=== PATIENT | female | born 1990 | race Caucasian/White ===

== ENCOUNTER 2017-09-13 22:08 | Emergency (ER) | payer SELFPAY ==
--- NOTE | 2017-09-13 22:28 | ED Physician Documentation ---
General Adult - HISTORIAN Historian: patient, paramedics - HPI Stated Complaint: Hallucinations Chief Complaint: General Adult Further Comments: yes (27 patient brought in by EMS for evaluation. Mother called PD and reported patient was having hallucinations. Patient states PD gave her the choice of correction or come to ER for evaluation. Patient reports she stopped taking her suboxone 7 days ago. Patient states she goes to [facility] in [place]. State her doctor does not know she stopped her suboxone. Patient denies suicidal thoughts, denies suicidal plan, denies homicidal thoughts or plans. States she does smoke marijuana.) - ROS CONST: recent illness (Drug Rehab) EYES/ENT: none CVS/RESP: none GI/: none MS/SKIN/LYMPH: none NEURO/PSYCH: headache, anxiety, depression. denies: fainting, dizziness, tingling, numbness, difficulty walking, difficulty with speech, other - PAST HX Past History: other (Depression; Polypharmacy abuse - including methamphetamine and heroin.) Allergies/Adverse Reactions: Allergies Allergy/AdvReac Type Severity Reaction Status Date / Time No Known Allergies Allergy Verified 09/13/17 22:20 Home Medications: Ambulatory Orders Medication Instructions Recorded Fluoxetine HCl [Prozac] 40 mg PO BID 09/13/17 Ciprofloxacin HCl [Cipro] 500 mg PO BID #14 tablet 09/14/17 - SOCIAL HX Smoking History: cigarettes Drug Use: heroin (History of abuse), marijuana (History of abuse), methamphetamines (History of abuse) - FAMILY HX Family History: No - VITAL SIGNS Vital Signs: Vital Signs Temp Pulse Resp BP Pulse Ox 94 H 18 118/70 97 09/13/17 22:10 09/13/17 22:10 09/13/17 22:10 09/13/17 22:10 - REVIEWED ASSESSMENTS Nursing Assessment Reviewed: Yes Vitals Reviewed: Yes Progress - Progress Progress: Mom and step-father in waiting room. Reviewed event of tonight. Mom reports patient with flight of ideas today, having hallucinations for the past 48 hours , reports patient thought [employer] was coming to get her sister, talking to her grandmother who had . States patient has not been going to out patient therapy, family does not attempt Al-Anon meetings, patient does not attend NA meetings. Mom aware of THC use. During interview, RN came to waiting room, requested provider return to ER. Patient standing at Er nurses desk, yelling "I can hear him talking about a graduate rn, I am not going back to [facility]". "I could hear everything they said". Explained to patient that she could not hear conversation in the waiting room, explained there was not discussion of bevel operator, explained what Mom reported. Patient yelling and walking around in Er, attempted to leave. Assisted patient back to room. Will progress with lab to rule out medical cause of auditory hallucinations. Patient cooperative with lab and IV fluids. Patient resting quietly in room. 0030 Reviewed discharge instructions with patient. NA meeting list provided. Instructed patient to stop using THC. See her PCP as soon as possible. Instructed patient to call [facility] in the morning. UA - with UTI, cipro sent to [facility]. Verbalized understanding. ED Results Lab/Radiology - Orders Orders: ED Orders Category Date Time Status ALCOHOL MEDICAL USE ONLY Stat Lab 09/13/17 Ordered CBC/PLATELET/DIFF Stat Lab 09/13/17 22:14 Ordered CMP Stat Lab 09/13/17 22:14 Ordered UA W/MICRO IF INDICATED Stat Lab 09/13/17 22:15 Ordered Urine drug screen [DRUG SCREEN URINE MEDICAL ONLY] Stat Lab 09/13/17 22:14 Ordered General Adult Physical Exam - PHYSICAL EXAM GENERAL APPEARANCE: moderate distress RESPIRATORY: no resp distress, chest non-tender, breath sounds normal CVS: reg rate & rhythm, heart sounds normal, equal pulses, no murmur, no gallop , PMI nml, no JVD, no friction rub, 24 ABDOMEN: soft, no organomegaly, normal bowel sounds, no abdominal bruit, no distension EXTREMITIES: non-tender, normal range of motion, no evidence of injury, no edema , J, FIELD EXAMINER NEURO: oriented X3, CN's nml as tested, motor nml, sensation nml, mood/affect nml, other (flight of ideas; auditory hallucinations) Discharge Clincal Impression: Auditory hallucination, Marijuana abuse, History of heroin abuse, History of methamphetamine abuse, Non compliance w medication regimen Prescriptions: Ciprofloxacin HCl [Cipro] 500 mg PO BID #14 tablet Referrals: Sherron Moreno FNP [Primary Care Provider] - 2 Days Additional Instructions: Stop using marijuana - it is exacerbating your symptoms. Return to [facility] on Sunday See your provider who prescribes your suboxone as soon as possible. Go to an NA meeting on Sunday. Return to Er if you have thoughts of suicide, homicide or your symptoms become worse. Condition: Stable Disposition: 01 HOME, SELF-CARE Decision to Admit: NO Decision Time: 12:50
[2017-09-13] MEDS ORDERED: 0.9 % SODIUM CHLORIDE 1,000 ML IV ONE ×2 (22:53→22:57)
[2017-09-13 23:55] LABS: BASOPHILS % 0.5 (0.0-1.5); EOSINOPHILS % 0.4 % (0.0-6.8); MEAN CORPUSCULAR HEMOGLOBIN 30.5 pg (28.0-34.0); MEAN CORPUSCULAR VOLUME 90.2 fl (80.0-100.0); MONOCYTES % 4.3 % (0.0-11.0); NEUTROPHILS # 6.8 # k/uL (1.4-7.7)
[2017-09-13 23:58] LABS: eGFR (African) > 60; eGFR (Non-African) > 60
[2017-09-14 00:31] LABS: APPEARANCE,URINE CLOUDY (CLEAR); COLOR,URINE AMBER (YELLOW); OCCULT BLOOD,URINE 2+ (NEGATIVE)
[2017-09-14 00:34] LABS: CANNABINOIDS NON NEGATIVE ng/mL (< 50); METHYLENEDIOXYMETHAMPHETAMINE NEGATIVE ng/mL (<500)
[2017-09-14 01:10] VITALS: BP 114/68
== END 2017-09-14 01:05 | disposition home or self-care (01) ==
LOC: ED 22:08
DX: F12.10 Cannabis abuse, uncomplicated (principal); F11.10 Opioid abuse, uncomplicated; F15.10 Other stimulant abuse, uncomplicated; Z91.14 Patient's other noncompliance with medication regimen; R44.3 Hallucinations, unspecified
CPT/HCPCS: 80053; 80320; 80377; 81002; 85025; 87086; 87186; J7030; 96360; 99284; G0480; G0481; S1016